=== PATIENT | female | born 1985 | race Caucasian/White ===

== ENCOUNTER 2021-08-20 00:51 | Emergency (ER) | payer BC ==
[~2021-08-20] VITALS: Ht 152.4 cm; Wt 88.5 kg
[2021-08-20] MEDS ORDERED: MORP15TA PO (02:38)
[2021-08-20] MEDS ORDERED: DOXY100C3 PO (02:38)
[2021-08-20] MEDS ORDERED: METR-34 PO (02:38)
[2021-08-20] MEDS ORDERED: IBUP-1007 PO (02:38)
--- NOTE | 2021-08-20 02:38 | PHYS DOC ---
Past Medical History Past Medical History: No Pertinent History Past Surgical History: Additional Past Surgical Histo: wrist surgery Smoking Status: Never Smoker Alcohol Use: Occasionally Drug Use: None Adult General Chief Complaint Chief Complaint: VAGINAL PROBLEM HPI HPI The patient is a 35-year-old female who is otherwise healthy. She presents for evaluation of several days of discomfort and swelling to her lower left outer vaginal wall. No fevers, nausea or vomiting, abdominal pain of any kind, flank pain, midline back pain, dysuria, hematuria, polyuria or oliguria, unusual vaginal discharge or bleeding, perineal or rectal pain, changes in bowel habits. Review of Systems Review of Systems A 12 point review of systems was completed and was negative except where noted in HPI above. Current Medications Current Medications Current Medications Medications (Trade) Dose Ordered Sig/Yi Start Time Stop Time Status Last Admin Dose Admin Acetaminophen (Tylenol) 1,000 mg 1X ONCE 08/20/21 03:00 08/20/21 03:01 08/20/21 02:47 1,000 MG Doxycycline Hyclate (Vibra-Tab) 100 mg 1X ONCE 08/20/21 03:00 08/20/21 03:01 08/20/21 02:47 100 MG Ibuprofen (Motrin) 800 mg 1X ONCE 08/20/21 03:00 08/20/21 03:01 08/20/21 02:47 800 MG Metronidazole (Flagyl) 500 mg 1X ONCE 08/20/21 03:00 08/20/21 03:01 08/20/21 02:46 500 MG Allergies Allergies Allergies Coded Allergies Type Severity Reaction Last Updated Verified Penicillins Allergy Intermediate rash 08/20/21 Yes codeine Allergy Intermediate rash 08/20/21 Yes Physical Exam Physical Exam 35-year-old female appearing nontoxic and in no acute distress. Head is normocephalic and atraumatic. Neck is supple and nontender. Oropharynx is moist. Lungs are clear to auscultation at all stations. There is a normal S1 and S2 without rubs or gallops and capillary refill is appropriate, less than 2 seconds globally. Abdomen is soft, nontender nondistended. Skin is warm and dry without cyanosis, clubbing or edema. Psychiatrically, the patient demonstrates appropriate mood and affect and is alert. Nursechaperoned urogenital examination is remarkable for a small (~1.5cm diameter) tender left Bartholin's gland cyst without surrounding erythema, warmth or swelling. Palpat ing the site reproduces patient's discomfort. No other inguinal or vaginal or perineal or rectal abnormalities identified. Current Patient Data Vital Signs Vital Signs Date Time Temp Pulse Resp B/P (MAP) Pulse Ox O2 Delivery O2 Flow Rate FiO2 08/20/21 01:15 98.3 108 18 139/73 (95) 100 Room Air 98.3 EKG EKG [] Radiology/Procedures Radiology/Procedures [] Course & Med Decision Making Course & Med Decision Making Patient with small left Bartholin's gland cyst versus absess. Offered I&D procedure and she would prefer to try therapy with antibiotics and anti- inflammatories first, with a plan to follow-up very closely with her mutuel machine operator in the next 1 to 2 days. She understands that if she feels worse instead of better or develops other new symptoms of concern that she should return to the emergency department immediately for reevaluation. All questions are answered. Patient reports an allergy to Bactrim which is first-line therapy for this issue. Also reporting allergy to penicillins. Therefore, selected second line regimen of doxycycline and Flagyl per UpToDate recommendations for Bartholin's cyst/abscess treatment. Patient given a dose here prior to discharge. Dragon Disclaimer Dragon Disclaimer This electronic medical record was generated, in whole or in part, using a voice recognition dictation system. Departure Departure Impression: Primary Impression: Bartholin gland cyst Disposition: HOME / SELF CARE / HOMELESS Condition: IMPROVED Referrals: AMY ARCHULETA MD (PCP) Patient Instructions: Bartholin's Cyst or Abscess Additional Instructions: Follow-up very closely with your mutuel machine operator in the office in the next 1 to 2 days for a reevaluation of your symptoms and a discussion of next best steps in care. You may apply warm compresses to the area that hurts to improve discomfort and encourage drainage of the site. Begin taking the doxycycline and Flagyl antibiotics as prescribed and take them for the next 7 days until they are gone. Drink plenty of fluids and get plenty of rest. Take 600 mg of ibuprofen every 6 hours as needed for discomfort. Take with food to prevent stomach upset. For pain not well controlled with ibuprofen you may take an oral morphine pill every 6 hours as needed. Be careful because oral morphine can make you sleepy so do not drive or work or operate machinery while taking it. Return to the emergency department right away for worsening symptoms of any kind or with any other new symptoms of concern. Scripts Morphine Sulfate (MORPHINE SULFATE) 15 Mg Tablet 1 TAB PO QID for breakthrough pain, #7 TAB Prov: SARA FRANCE MD 08/20/21 Ibuprofen (IBUPROFEN) 600 Mg Tablet 600 MG PO PRN Q6HRS PRN for PAIN, #40 TAB take with food or milk Prov: SARA FRANCE MD 08/20/21 Metronidazole (METRONIDAZOLE) 500 Mg Tablet 1 TAB PO TID for 7 Days, #21 TAB 0 Refills Prov: SARA FRANCE MD 08/20/21 Doxycycline Hyclate (DOXYCYCLINE HYCLATE) 100 Mg Capsule 1 CAP PO BID for 7 Days, #14 CAP Prov: SARA FRANCE MD 08/20/21 SARA FRANCE MD Aug 20, 2021 02:38
[2021-08-20] MEDS ORDERED: ACETAMINOPHEN 500 MG TABLET PO ONE (03:00)
[2021-08-20] MEDS ORDERED: IBUPROFEN 400 MG TABLET. PO ONE (03:00)
[2021-08-20] MEDS ORDERED: DOXYCYCLINE HYCLATE 100 MG TABLET PO ONE (03:00)
[2021-08-20] MEDS ORDERED: metroNIDAZOLE 500 MG TABLET PO ONE (03:00)
[2021-08-20 03:33] VITALS: BP 139/73
== END 2021-08-20 03:27 | disposition home or self-care (01) ==
LOC: ER 00:51
DX: N75.0 Cyst of Bartholin's gland (principal); Z88.0 Allergy status to penicillin; Z88.5 Allergy status to narcotic agent
CPT/HCPCS: 99284

== ENCOUNTER 2021-08-23 14:33 | Emergency (ER) | payer BC ==
[~2021-08-23] VITALS: Ht 152.4 cm; Wt 88.0 kg
[~2021-08-23 14:33] MED LIST: DOXY100C3 PO; IBUP-1007 PO; METR-34 PO; MORP15TA PO
[2021-08-23 14:54] VITALS: BP 135/81
[2021-08-23] MEDS ORDERED: LIDOCAINE 1%/EPI 1:100,000 20 ML VIAL. INJ ONE (15:15)
[2021-08-23 16:15] LABS: BASO # 0.1 x10^3/uL (0.0-0.2); BASO % 0 % (0-3); EOS # 0.3 x10^3/uL (0.0-0.7); EOS % 2 % (0-3); HEMATOCRIT 34.5 % (36.0-47.0); HEMOGLOBIN 11.1 g/dL (12.0-15.5); LYMPH # 2.2 x10^3/uL (1.0-4.8); LYMPH % 12 % (24-48); MEAN CORPUSCULAR HEMOGLOBIN 23 pg (25-35); MEAN CORPUSCULAR HGB CONC 32 g/dL (31-37); MEAN CORPUSCULAR VOLUME 73 fL (79-100); MONO # 1.3 x10^3/uL (0.0-1.1); MONO % 7 % (0-9); NEUT # 15.5 x10^3/uL (1.8-7.7); NEUT % 80 % (31-73); PLATELET COUNT 449 x10^3/uL (140-400); RED BLOOD COUNT 4.73 x10^6/uL (3.50-5.40); RED CELL DISTRIBUTION WIDTH 15.9 % (11.5-14.5); WHITE BLOOD COUNT 19.4 x10^3/uL (4.0-11.0)
[2021-08-23] MEDS ORDERED: IBUPROFEN 400 MG TABLET. PO ONE (16:15)
[2021-08-23] MEDS ORDERED: cefTRIAXone IV Push 1 GM VIAL. IVP ONE (16:15)
[2021-08-23] MEDS ORDERED: ONDANSETRON ODT 4 MG TAB.RAPDIS. PO ONE (16:15)
[2021-08-23] MEDS ORDERED: AZITHROMYCIN 250 MG TABLET. PO ONE (16:15)
[2021-08-23 16:24] LABS: CALCIUM 8.5 mg/dL (8.5-10.1); CREATININE 0.8 mg/dL (0.6-1.0); GFR 82.1; POTASSIUM 3.4 mmol/L (3.5-5.1)
[2021-08-23 16:30] LABS: ALBUMIN 3.2 g/dL (3.4-5.0); ALBUMIN/GLOBULIN RATIO 0.7 (1.0-1.7); TOTAL BILIRUBIN 0.2 mg/dL (0.2-1.0); TOTAL PROTEIN 7.7 g/dL (6.4-8.2)
--- NOTE | 2021-08-23 16:39 | PHYS DOC ---
Past Medical History Past Medical History: No Pertinent History Past Surgical History: Additional Past Surgical Histo: wrist surgery Smoking Status: Never Smoker Alcohol Use: None Drug Use: None General Adult EDM: Chief Complaint: ABSCESS HPI: HPI: Patient is a 35 year old female who presents with was here on August 20 with a left labial cellulitis and abscess. She was placed on doxycycline and metronidazole because the patient had told the physician that she was allergic to penicillins and Bactrim. She states she has been taking these medications. He also wrote for morphine and ibuprofen. States she is still in a lot of pain and feels that the abscess needs to be drained. She was offered I&D of the abscess when she was here on the but refused and wanted to try just medication first. She states morphine just makes her head feel funny. She has only other history of . She denies fever, body aches, nausea or vomiting, headache or dizziness, urinary symptoms, or vaginal discharge or concerns for STDs. She is rating her pain a 10 out of 10 burning. Review of Systems: Review of Systems: Constitutional: Denies fever or chills. [] Eyes: Denies change in visual acuity. [] HENT: Denies nasal congestion or sore throat. [] Respiratory: Denies cough or shortness of breath. [] Cardiovascular: Denies chest pain or edema. [] GI: Denies abdominal pain, nausea, vomiting, bloody stools or diarrhea. [] : Denies dysuria. [] Musculoskeletal: Denies back pain or joint pain. [] Integument: Denies rash. [] Neurologic: Denies headache, focal weakness or sensory changes. [] Endocrine: Denies polyuria or polydipsia. [] Lymphatic: Denies swollen glands. [] Psychiatric: Denies depression or anxiety. [] Heart Score: C/O Chest Pain: No Current Medications: Current Medications Medications (Trade) Dose Ordered Sig/Yi Start Time Stop Time Status Last Admin Dose Admin Azithromycin (Zithromax) 1,000 mg 1X ONCE 08/23/21 16:15 08/23/21 16:16 DC 08/23/21 16:23 1,000 MG Ceftriaxone Sodium (Rocephin) 1 gm 1X ONCE 08/23/21 16:15 08/23/21 16:16 DC 08/23/21 16:27 1 GM Ibuprofen (Motrin) 800 mg 1X ONCE 08/23/21 16:15 08/23/21 16:16 DC 08/23/21 16:26 800 MG Lidocaine/ Epinephrine (LIDOCAINE 1%-EPI 1:100,000 Multi-Dose) 20 ml 1X ONCE 08/23/21 15:15 08/23/21 15:16 DC 08/23/21 15:22 20 ML Ondansetron HCl (Zofran Odt) 4 mg 1X ONCE 08/23/21 16:15 08/23/21 16:16 DC 08/23/21 16:27 4 MG Allergies: Allergies: Allergies Coded Allergies Type Severity Reaction Last Updated Verified Penicillins Allergy Intermediate rash 08/20/21 Yes codeine Allergy Intermediate rash 08/20/21 Yes Physical Exam: PE: Constitutional: Well developed, well nourished, no acute distress, non-toxic appearance. [] HENT: Normocephalic, atraumatic, bilateral external ears normal, oropharynx moist, no oral exudates, nose normal. [] Eyes: PERRLA, EOMI, conjunctiva normal, no discharge. [] Neck: Normal range of motion, no tenderness, supple, no stridor. [] Cardiovascular:Heart rate regular rhythm, no murmur [] Lungs & Thorax: Bilateral breath sounds clear to auscultation [] Abdomen: Bowel sounds normal, soft, no tenderness, no masses, no pulsatile masses. [] Skin: Warm, dry, left labial erythema, no rash. Left labial swelling, tenderness. [] Back: No tenderness, no CVA tenderness. [] Extremities: No tenderness, no cyanosis, no clubbing, ROM intact, no edema. [] Neurologic: Alert and oriented X 3, normal motor function, normal sensory function, no focal deficits noted. [] Psychologic: Affect normal, judgement normal, mood normal. [] Current Patient Data: Labs: Laboratory Tests Test 08/23/21 15:55 White Blood Count 19.4 x10^3/uL (4.0-11.0) H Red Blood Count 4.73 x10^6/uL (3.50-5.40) Hemoglobin 11.1 g/dL (12.0-15.5) L Hematocrit 34.5 % (36.0-47.0) L Mean Corpuscular Volume 73 fL (79-100) L Mean Corpuscular Hemoglobin 23 pg (25-35) L Mean Corpuscular Hemoglobin Concent 32 g/dL (31-37) Red Cell Distribution Width 15.9 % (11.5-14.5) H Platelet Count 449 x10^3/uL (140-400) H Neutrophils (%) (Auto) 80 % (31-73) H Lymphocytes (%) (Auto) 12 % (24-48) L Monocytes (%) (Auto) 7 % (0-9) Eosinophils (%) (Auto) 2 % (0-3) Basophils (%) (Auto) 0 % (0-3) Neutrophils # (Auto) 15.5 x10^3/uL (1.8-7.7) H Lymphocytes # (Auto) 2.2 x10^3/uL (1.0-4.8) Monocytes # (Auto) 1.3 x10^3/uL (0.0-1.1) H Eosinophils # (Auto) 0.3 x10^3/uL (0.0-0.7) Basophils # (Auto) 0.1 x10^3/uL (0.0-0.2) Sodium Level 144 mmol/L (136-145) Potassium Level 3.4 mmol/L (3.5-5.1) L Chloride Level 105 mmol/L (98-107) Carbon Dioxide Level 26 mmol/L (21-32) Anion Gap 13 (6-14) Blood Urea Nitrogen 13 mg/dL (7-20) Creatinine 0.8 mg/dL (0.6-1.0) Estimated GFR (Cockcroft-Gault) 82.1 BUN/Creatinine Ratio 16 (6-20) Glucose Level 97 mg/dL (70-99) Calcium Level 8.5 mg/dL (8.5-10.1) Total Bilirubin 0.2 mg/dL (0.2-1.0) Aspartate Amino Transferase (AST) 10 U/L (15-37) L Alanine Aminotransferase (ALT) 21 U/L (14-59) Alkaline Phosphatase 139 U/L (46-116) H Total Protein 7.7 g/dL (6.4-8.2) Albumin 3.2 g/dL (3.4-5.0) L Albumin/Globulin Ratio 0.7 (1.0-1.7) L Laboratory Tests 08/23/21 15:55 Laboratory Tests 08/23/21 15:55 Vital Signs: Vital Signs Date Time Temp Pulse Resp B/P (MAP) Pulse Ox O2 Delivery O2 Flow Rate FiO2 08/23/21 14:54 98.9 109 16 135/81 (99) 99 Room Air 98.9 EKG: EKG: [] Radiology/Procedures: Radiology/Procedures: [] Course & Med Decision Making: Course & Med Decision Making Pertinent Labs and Imaging studies reviewed. (See chart for details) See HPI. Alert and oriented x4. Ambulatory steady gait. Speaks in full clear sentences. White blood cell count is 19 but she is afebrile. She does not have diabetes or any other core mobilities. I spoke to Dr. Stoddard and he states to give her azithromycin and Rocephin here in the ED to treat for any underlying chlamydia or gonorrhea. He states that she is okay to go home continue taking the doxycycline and Flagyl. Patient states that she will call first thing in the morning to her primary care or gynecology to get in to be seen. Patient is also educated she can come back in 1 to 2 days for a recheck. Patient is educated about sits baths and she states that she has been doing that also at home. Patient is nonseptic appearing and stable. I&D Location: Left inner labia Anesthesia: Lidocaine with epi Scalpel size: #11 Skin: Erythematous, warm, swollen Drainage: Copious amounts of foul-smelling green/yellow/white fluid drained Packing: None Patient tolerated the procedure well with no complications. The area was prepped and draped in usual sterile fashion. Area was cleaned with chloehexidine prior to procedure. Return for signs and symptoms of infection education given. Patient to return in 48 hours for wound recheck. Dragon Disclaimer: Dragon Disclaimer: This electronic medical record was generated, in whole or in part, using a voice recognition dictation system. Departure Departure Impression: Primary Impression: Left genital labial abscess Additional Impression: Cellulitis Qualified Codes: L03.90 - Cellulitis, unspecified Disposition: HOME / SELF CARE / HOMELESS Condition: STABLE Referrals: AMY ARCHULETA MD (PCP) LYN SMITH MD Patient Instructions: Abscess, Care After, Bartholin's Cyst or Abscess, Sitz Bath, [id number] Additional Instructions: Follow-up with your primary care doctor in the next 24 to 48 hours. I have also referred you to a food services coordinator if you do not have 1 and you can also try to get into see them in the next 24 to 48 hours. If you are not unable to get into be seen by either primary care or gynecology you can return here for a wound recheck. Continue taking your antibiotics as prescribed. If you begin having vomiting or high fever you should return to the emergency room. Continue with sitz baths. DAILY BALL APRN Aug 23, 2021 16:39
== END 2021-08-23 17:00 | disposition home or self-care (01) ==
LOC: ER 14:33
DX: N76.4 Abscess of vulva (principal); Z88.0 Allergy status to penicillin; Z88.5 Allergy status to narcotic agent
CPT/HCPCS: 36415; 56405; 80053; 85025; 96374; 99284; J0696; J3490